=== PATIENT | female | born 1955 | race African-American/Black ===

== ENCOUNTER 2018-06-14 18:39 | Emergency (ER) | payer SELFPAY | END 2018-06-14 20:02 | disposition left against medical advice (07) | LOC: FTE 18:39 | DX: Z53.21 Procedure and treatment not carried out due to patient leaving prior to being seen by health care provider (principal) ==

== ENCOUNTER 2019-03-09 16:51 | Inpatient (IN) | payer OTHER ==
[2019-03-09 18:13] LABS: ADD MAN DIFF? NO
[2019-03-09] MEDS: ONDANSETRON 4 MG INJ IV ×2 (18:19→19:57)
[2019-03-09] MEDS: PANTOPRAZOLE 40 MG INJ IV (18:19)
[2019-03-09 18:20] LABS: BASOPHIL # 0.1 10^3/ul (0.0-0.1); BASOPHILS % 0.6 % (0.0-2.0); EOSINOPHILS # 0.1 10^3/ul (0.0-0.5); EOSINOPHILS % 1.2 % (0.0-7.0); HEMATOCRIT 42.4 % (37.0-47.0); HEMOGLOBIN 15.1 g/dl (12.0-16.0); LYMPHOCYTES # 2.6 10^3/ul (0.8-2.9); LYMPHOCYTES % 29.9 % (15.0-51.0); MEAN CORPUSCULAR HEMOGLOBIN 34.5 pg (29.0-33.0); MEAN CORPUSCULAR HGB CONC 35.6 g/dl (32.0-37.0); MEAN CORPUSCULAR VOLUME 96.8 fl (82.0-101.0); MEAN PLATELET VOLUME 10.5 fl (7.4-10.4); MONOCYTES % 11.5 % (0.0-11.0); NEUTROPHIL # 4.8 10^3/ul (1.6-7.5); NEUTROPHILS % 56.1 % (39.0-77.0); PLATELET COUNT 275 10^3/UL (140-415); RED BLOOD COUNT 4.38 10^6/ul (4.20-5.40); RED CELL DISTRIBUTION WIDTH 11.3 % (11.5-14.5)
[2019-03-09 18:20] LABS: WHITE BLOOD COUNT 8.5 10^3/ul (4.8-10.8)
[2019-03-09] MEDS: FAMOTIDINE 20 MG INJ IV (18:20)
[2019-03-09] MEDS: SOD CHLORIDE 0.9% 1,000 ML IV ×2 (18:20→20:07)
[2019-03-09] MEDS: CEFTRIAXONE 1 GM/50 ML (PMX) 50 ML IVPB (18:20)
[2019-03-09] MEDS: morphine 4 MG/ML VIAL IV (18:23)
[2019-03-09 18:39] LABS: INR 0.98; PROTIME 13.1 Sec (11.9-14.9)
[2019-03-09 18:40] LABS: ALANINE AMINOTRANSFERASE 322 IU/L (13-69); ALBUMIN 5.1 g/dl (3.3-4.9); ALBUMIN/GLOBULIN RATIO 1.45; ALKALINE PHOSPHATASE 114 IU/L (42-121); ANION GAP 17 (5-13); ASPARTATE AMINO TRANSFERASE 381 IU/L (15-46); BILIRUBIN,INDIRECT 2.6 mg/dl (0-1.1); BILIRUBIN,TOTAL 2.6 mg/dl (0.2-1.3); BLOOD UREA NITROGEN 35 mg/dl (7-20); CALCIUM 9.9 mg/dl (8.4-10.2); CARBON DIOXIDE 21 mmol/L (21-31); CHLORIDE 91 mmol/L (97-110); CREATININE 1.56 mg/dl (0.44-1.00); Estimated GFR 41 mL/min (>60); GLUCOSE 148 mg/dl (70-220); LIPASE 111 U/L (23-300); PARTIAL THROMBOPLASTIN TIME 27.9 Sec (23.0-35.0); SODIUM 129 mmol/L (135-144); TOTAL PROTEIN 8.6 g/dl (6.1-8.1)
[2019-03-09 18:41] LABS: ETHANOL < 10.0 mg/dl (0-0)
[2019-03-09 18:52] LABS: TROPONIN-I 0.104 ng/ml (0.000-0.120)
[2019-03-09] MEDS: OCTREOTIDE 500 MCG in SOD CHLORIDE 0.9% 49 ML IV (19:27)
[2019-03-09] MEDS ORDERED: BISACODYL (EC) 5 MG TAB PO (19:30)
[2019-03-09] MEDS ORDERED: NACL 0.9% 3 ML SYG IV (19:30)
[2019-03-09] MEDS ORDERED: morphine 2 MG INJ IV (19:30)
[2019-03-09] MEDS ORDERED: HYDROCODONE/APAP (5/325) TAB PO (19:30)
[2019-03-09] MEDS ORDERED: MAGNESIUM HYDROXIDE 30ML CUP PO (19:30)
[2019-03-09] MEDS ORDERED: DOCUSATE SODIUM 100 MG CAP PO (19:30)
[2019-03-09] MEDS ORDERED: ACETAMINOPHEN 650 MG SUPP PR (19:30)
[2019-03-09] MEDS: OCTREOTIDE 50 MCG in SOD CHLORIDE 0.9% 25 ML IVPB (19:40)
[2019-03-09] MEDS: NICOTINE (14 MG/24 HR) PATCH TRANSDERM (22:33)
[2019-03-10 02:48] LABS: ADD UMIC YES; UR ASCORBIC ACID NEGATIVE (NEGATIVE); UR BILIRUBIN (Dip) NEGATIVE (NEGATIVE); UR BLOOD (Dip) 2+ mg/dL (NEGATIVE); UR CLARITY CLEAR (CLEAR); UR COLOR YELLOW (YELLOW); UR GLUCOSE (Dip) NEGATIVE (NEGATIVE); UR KETONES (Dip) TRACE mg/dL (NEGATIVE); UR LEUKOCYTE ESTERASE (Dip) NEGATIVE Leu/ul (NEGATIVE); UR NITRITE (Dip) NEGATIVE (NEGATIVE); UR RBC 1 /HPF (0-5); UR SPECIFIC GRAVITY (Dip) 1.009 (1.003-1.030); UR TOTAL PROTEIN (Dip) NEGATIVE (NEGATIVE); UR UROBILINOGEN (Dip) NEGATIVE (NEGATIVE); UR WBC 0 /HPF (0-5)
[2019-03-10] MEDS: OCTREOTIDE 1 MG in DEXTROSE 5% 95 ML IV (05:30)
[2019-03-10] MEDS: SOD CHLORIDE 0.9% 1,000 ML IV ×2 (05:31→14:48)
[2019-03-10 06:30] LABS: ADD MAN DIFF? NO
[2019-03-10 06:47] LABS: BASOPHILS % 0.6 % (0.0-2.0); EOSINOPHILS # 0.1 10^3/ul (0.0-0.5); EOSINOPHILS % 1.8 % (0.0-7.0); HEMATOCRIT 36.6 % (37.0-47.0); HEMOGLOBIN 12.6 g/dl (12.0-16.0); LYMPHOCYTES # 2.5 10^3/ul (0.8-2.9); LYMPHOCYTES % 37.6 % (15.0-51.0); MEAN CORPUSCULAR HEMOGLOBIN 34.1 pg (29.0-33.0); MEAN CORPUSCULAR HGB CONC 34.4 g/dl (32.0-37.0); MEAN CORPUSCULAR VOLUME 98.9 fl (82.0-101.0); MONOCYTE # 0.9 10^3/ul (0.3-0.9); MONOCYTES % 13.5 % (0.0-11.0); NEUTROPHIL # 3.1 10^3/ul (1.6-7.5); NEUTROPHILS % 46.1 % (39.0-77.0); PLATELET COUNT 196 10^3/UL (140-415); RED CELL DISTRIBUTION WIDTH 11.2 % (11.5-14.5)
[2019-03-10 06:47] LABS: WHITE BLOOD COUNT 6.7 10^3/ul (4.8-10.8)
[2019-03-10 07:03] LABS: HEMOGLOBIN A1C 4.7 % (0-5.9)
[2019-03-10 07:20] LABS: ALANINE AMINOTRANSFERASE 196 IU/L (13-69); ALBUMIN 3.6 g/dl (3.3-4.9); ALBUMIN/GLOBULIN RATIO 1.24; ALKALINE PHOSPHATASE 83 IU/L (42-121); ANION GAP 10 (5-13); ASPARTATE AMINO TRANSFERASE 166 IU/L (15-46); BILIRUBIN,INDIRECT 1.4 mg/dl (0-1.1); BILIRUBIN,TOTAL 1.4 mg/dl (0.2-1.3); BLOOD UREA NITROGEN 27 mg/dl (7-20); CALCIUM 8.9 mg/dl (8.4-10.2); CARBON DIOXIDE 20 mmol/L (21-31); CHLORIDE 101 mmol/L (97-110); CREATININE 1.39 mg/dl (0.44-1.00); Estimated GFR 47 mL/min (>60); GLUCOSE 125 mg/dl (70-220); MAGNESIUM 1.3 mg/dl (1.7-2.5); PHOSPHORUS 3.8 mg/dl (2.5-4.9); POTASSIUM 4.4 mmol/L (3.5-5.1); SODIUM 131 mmol/L (135-144); TOTAL PROTEIN 6.5 g/dl (6.1-8.1)
[2019-03-10 07:47] LABS: THYROID STIMULATING HORMONE 0.077 MIU/L (0.465-4.680)
[2019-03-10] MEDS: MULTIVITAMINS 10 ML, THIAMINE 100 MG, FOLIC ACID 1 MG in SOD CHLORIDE 0.9% 1,000 ML IVPB (09:36)
[2019-03-10] MEDS: ACETAMINOPHEN 325 MG TAB PO (09:45)
[2019-03-10 13:35] LABS: HEPATITIS B SURFACE ANTIGEN NEGATIVE (NEGATIVE)
[2019-03-10 13:53] LABS: HEPATITIS B CORE ANTIBODY REACTIVE (NEGATIVE)
[2019-03-10 14:02] LABS: HEPATITIS C VIRAL ANTIBODY REACTIVE (NEGATIVE)
[2019-03-10 14:05] LABS: HEPATITIS B SURFACE ANTIBODY POSITIVE (NEGATIVE)
[2019-03-10] MEDS: BISACODYL (EC) 5 MG TAB PO (14:55)
[2019-03-10] MEDS: PEG/ELECTROLYTES 4L BTL PO (16:23)
[2019-03-10] MEDS: ONDANSETRON 4 MG INJ IV (17:58)
[2019-03-10] MEDS: CLONIDINE 0.1 MG/24 HR PATCH TRANSDERM (21:52)
[2019-03-11] MEDS: OCTREOTIDE 1 MG in DEXTROSE 5% 95 ML IV (00:36)
[2019-03-11 05:35] LABS: ADD MAN DIFF? NO
[2019-03-11] MEDS: BISACODYL (EC) 5 MG TAB PO (05:39)
[2019-03-11] MEDS: PEG/ELECTROLYTES 4L BTL PO (05:40)
[2019-03-11 05:43] LABS: WHITE BLOOD COUNT 6.3 10^3/ul (4.8-10.8)
[2019-03-11 05:43] LABS: BASOPHIL # 0.1 10^3/ul (0.0-0.1); BASOPHILS % 0.8 % (0.0-2.0); EOSINOPHILS # 0.2 10^3/ul (0.0-0.5); EOSINOPHILS % 2.9 % (0.0-7.0); HEMATOCRIT 34.8 % (37.0-47.0); HEMOGLOBIN 12.2 g/dl (12.0-16.0); LYMPHOCYTES # 3.3 10^3/ul (0.8-2.9); LYMPHOCYTES % 51.8 % (15.0-51.0); MEAN CORPUSCULAR HEMOGLOBIN 34.1 pg (29.0-33.0); MEAN CORPUSCULAR HGB CONC 35.1 g/dl (32.0-37.0); MEAN CORPUSCULAR VOLUME 97.2 fl (82.0-101.0); MEAN PLATELET VOLUME 10.8 fl (7.4-10.4); MONOCYTE # 0.7 10^3/ul (0.3-0.9); MONOCYTES % 10.7 % (0.0-11.0); NEUTROPHIL # 2.1 10^3/ul (1.6-7.5); NEUTROPHILS % 33.5 % (39.0-77.0); PLATELET COUNT 188 10^3/UL (140-415); RED BLOOD COUNT 3.58 10^6/ul (4.20-5.40)
[2019-03-11 06:07] LABS: ANION GAP 10 (5-13); BLOOD UREA NITROGEN 18 mg/dl (7-20); CALCIUM 9.4 mg/dl (8.4-10.2); CARBON DIOXIDE 19 mmol/L (21-31); CHLORIDE 104 mmol/L (97-110); CREATININE 1.11 mg/dl (0.44-1.00); Estimated GFR > 60 mL/min (>60); GLUCOSE 136 mg/dl (70-220); SODIUM 133 mmol/L (135-144)
[2019-03-11 06:20] LABS: FREE T4 (FREE THYROXINE) 1.19 ng/dl (0.78-2.44)
[2019-03-11 06:34] LABS: TRIIODOTHYRONINE 0.53 ng/ml (0.97-1.69)
[2019-03-11] MEDS: MULTIVITAMINS 10 ML, THIAMINE 100 MG, FOLIC ACID 1 MG in SOD CHLORIDE 0.9% 1,000 ML IVPB (09:08)
[2019-03-11] MEDS: SOD CHLORIDE 0.9% 1,000 ML IV (09:09)
[2019-03-11] MEDS ORDERED: PROPOFOL 60 ML (12:07)
[2019-03-11] MEDS ORDERED: LIDOCAINE 2% (SDV) 5 ML INJ (12:07)
[2019-03-11] MEDS ORDERED: LABETALOL HCL 20MG INJ IV (12:30)
[2019-03-11] MEDS ORDERED: ONDANSETRON 4 MG INJ IV (12:30)
[2019-03-11] MEDS ORDERED: hydrALAzine 20 MG INJ IV (12:30)
[2019-03-11] MEDS ORDERED: PROPOFOL 20 ML (13:10)
== END 2019-03-11 16:51 | disposition home or self-care (01) | DRG 379 ==
LOC: E/R 16:51 → TEL 19:14
PROC: 0DB98ZX Excision of Duodenum, Via Natural or Artificial Opening Endoscopic, Diagnostic (ICD-10-PCS; principal; 2019-03-11 11:00)
PROC: 0DBH8ZX Excision of Cecum, Via Natural or Artificial Opening Endoscopic, Diagnostic (ICD-10-PCS; 2019-03-11 11:00)
DX: K92.2 Gastrointestinal hemorrhage, unspecified (principal); B19.20 Unspecified viral hepatitis C without hepatic coma; K70.10 Alcoholic hepatitis without ascites; F10.10 Alcohol abuse, uncomplicated; E78.5 Hyperlipidemia, unspecified; I12.9 Hypertensive chronic kidney disease with stage 1 through stage 4 chronic kidney disease, or unspecified chronic kidney disease; N18.9 Chronic kidney disease, unspecified; E03.9 Hypothyroidism, unspecified; F17.200 Nicotine dependence, unspecified, uncomplicated; F32.9 Major depressive disorder, single episode, unspecified; J44.9 Chronic obstructive pulmonary disease, unspecified; K31.7 Polyp of stomach and duodenum; D12.0 Benign neoplasm of cecum; I85.10 Secondary esophageal varices without bleeding; Y90.0 Blood alcohol level of less than 20 mg/100 ml; R63.4 Abnormal weight loss; Z68.25 Body mass index [BMI] 25.0-25.9, adult; Z90.81 Acquired absence of spleen; Z87.11 Personal history of peptic ulcer disease
CPT/HCPCS: 71045; 74176; 76705; 80048; 80053; 80307; 81001; 83036; 83690; 83735; 84100; 84439; 84443; 84480; 84484; 85025; 85610; 85730; 86704; 86706; 86709; 86803; 86850; 86900; 86901; 87045; 87075; 87205; 87340; 88305; 93005; 96374; 96375; 99285-25